=== PATIENT | female | born 1985 | race American Indian/Alaskan Native ===

== ENCOUNTER 2020-09-21 15:29 | Emergency (ER) | payer MEDICAID, OTHER ==
--- NOTE | 2020-09-21 18:00 | Emergency Department Report ---
ED General Adult HPI - General Chief complaint: Extremity Problem,Nontraumatic Stated complaint: CHEST/RT LEG/HEAD BURNING DISCHARGE Time Seen by Provider: 09/21/20 16:49 Source: patient Mode of arrival: Ambulatory Limitations: No Limitations - History of Present Illness Initial comments: Patient is a 35-year-old female presents emergency room complaints of right leg pain that began 2 to 3 days ago. She states that she has pain in her calf which radiates down to her heel. She states that she has some mild swelling to her calf. She denies any fall or injury. 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 She denies any numbness or weakness or tingling. She denies any chest pain or shortness of breath. She states that she is also had a headache around her right eye for 1 day. She has not taken any medications to help relieve any of her symptoms. She denies any fever, neck stiffness, vomiting, nausea, vision changes, numbness, weakness, speech disturbance, gait disturbance. No past medical history. No allergies to medications. Last menstrual cycle 3 weeks ago. Severity scale (0 -10): 5 - Related Data Previous Rx's Medication Instructions Recorded Last Taken Type Butalb/Acetaminophen/Caffeine 1 cap PO Q8HR PRN #12 cap 09/21/20 Unknown Rx [Fioricet 50-300-40 mg CAP] methOCARBAMOL [Robaxin TAB] 500 mg PO BID PRN #14 tab 09/21/20 Unknown Rx Allergies Allergy/AdvReac Type Severity Reaction Status Date / Time No Known Allergies Allergy Unverified 09/21/20 16:30 ED Review of Systems ROS: Stated complaint: CHEST/RT LEG/HEAD BURNING DISCHARGE Other details as noted in HPI Comment: All other systems reviewed and negative ED Past Medical Hx - Past Medical History Previous Medical History?: No - Surgical History Additional Surgical History: hernia repair - Medications Home Medications: Home Medications Medication Instructions Recorded Confirmed Last Taken Type Butalb/Acetaminophen/Caffeine 1 cap PO Q8HR PRN #12 cap 09/21/20 Unknown Rx [Fioricet 50-300-40 mg CAP] methOCARBAMOL [Robaxin TAB] 500 mg PO BID PRN #14 tab 09/21/20 Unknown Rx ED Physical Exam - General Limitations: No Limitations General appearance: alert, in no apparent distress - Head Head exam: Present: atraumatic, normocephalic - Eye Eye exam: Present: normal appearance, PERRL, EOMI. Absent: periorbital swelling, periorbital tenderness - ENT ENT exam: Present: mucous membranes moist - Neck Neck exam: Present: full ROM. Absent: meningismus - Respiratory Respiratory exam: Present: normal lung sounds bilaterally. Absent: respiratory distress, wheezes, rales, rhonchi, stridor, chest wall tenderness, accessory muscle use, decreased breath sounds, prolonged expiratory - Cardiovascular Cardiovascular Exam: Present: regular rate, normal rhythm, normal heart sounds. Absent: systolic murmur, diastolic murmur, rubs, gallop - Extremities Exam Extremities exam: Present: other (mild calf ttp, trace edema, no skin changes, no increased warmth, FROM of the RLE, no bony ttp, neurovascularly intact) - Neurological Exam Neurological exam: Present: alert, oriented X3, CN II-XII intact, normal gait. Absent: motor sensory deficit - Psychiatric Psychiatric exam: Present: normal affect, normal mood - Skin Skin exam: Present: warm, dry, intact ED Course Vital Signs 09/21/20 09/21/20 16:28 20:10 Temperature 98.5 F 98 F Pulse Rate 65 78 Respiratory 18 18 Rate Blood Pressure 116/85 Blood Pressure 102/49 [Right] O2 Sat by Pulse 100 100 Oximetry ED Medical Decision Making - Radiology Data Radiology results: report reviewed Ordering Physician: BAKARI LERMA Date of Service: 09/21/20 Procedure(s): VL venous duplex LE RT Accession Number(s): [id number] cc: BAKARI LERMA Right lower extremity Doppler venous ultrasound INDICATION: Edema FINDINGS: The right common femoral vein, superficial femoral vein and popliteal vein is normal compressibility and phasic flow. IMPRESSION: No evidence for DVT in the right lower extremity. Signer Name: Otis Gamez MD Signed: 09/21/2020 6:51 PM Workstation Name: [id number] Transcribed By: VOLODYMYR Dictated By: MARIBEL GAMEZ MD Electronically Authenticated By: MARIBEL GAMEZ MD Signed Date/Time: 09/21/201850 DD/ 49 TD/TT: Print - Medical Decision Making Patient is a 35-year-old female presents emergency room complaints of right leg pain that began 2 to 3 days ago. She states that she has pain in her calf which radiates down to her heel. She states that she has some mild swelling to her calf. She denies any fall or injury. 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 She denies any numbness or weakness or tingling. She denies any chest pain or shortness of breath. She states that she is also had a headache around her right eye for 1 day. She has not taken any medications to help relieve any of her symptoms. She denies any fever, neck stiffness, vomiting, nausea, vision changes, numbness, weakness, speech disturbance, gait disturbance. No past medical history. No allergies to medications. Last menstrual cycle 3 weeks ago. Vitals are normal. On exam:mild calf ttp, trace edema, no skin changes, no increased warmth, FROM of the RLE, no bony ttp, neurovascularly intact, patient has no focal neuro deficits or meningeal signs on exam. Doppler ultrasound right lower extremity: No evidence for DVT in the right lower extremity. Patient has had no acute trauma. She has no clinical signs of fracture or dislocation. She has no clinical signs of septic joint or gout. Patient also presenting with mild headache. She has not tried any treatment to alleviate her symptoms. Given prescription for Robaxin and Fioricet. Advised patient please take medication as prescribed. do not drive or operate heavy machinery while taking muscle relaxer robaxin. may use ice pack, heating pad, rest, epsom salt bath. follow up with primary care doctor. return to the emergency room for any new or worsening symptoms. Critical care attestation.: If time is entered above; I have spent that time in minutes in the direct care of this critically ill patient, excluding procedure time. ED Disposition Clinical Impression: Right calf pain Headache Qualifiers: Headache type: unspecified Headache chronicity pattern: acute headache Intractability: not intractable Qualified Code(s): R51.9 - Headache, unspecified Disposition: - TO HOME OR SELFCARE Is pt being admited?: No Does the pt Need Aspirin: No Condition: Stable Instructions: Migraine Headache, Focu-li-Lluo, Leg Cramps Additional Instructions: please take medication as prescribed. do not drive or operate heavy machinery while taking muscle relaxer robaxin. may use ice pack, heating pad, rest, epsom salt bath. follow up with primary care doctor. return to the emergency room for any new or worsening symptoms. Prescriptions: Butalb/Acetaminophen/Caffeine [Fioricet 50-300-40 mg CAP] 1 cap PO Q8HR PRN #12 cap PRN Reason: headache methOCARBAMOL [Robaxin TAB] 500 mg PO BID PRN #14 tab PRN Reason: leg cramping/pain Referrals: PRIMARY CARE, [Primary Care Provider] - 2-3 Days Forms: Work/School Release Form(ED) Time of Disposition: 19:26 Print Language: CHINESE
--- NOTE | 2020-09-21 18:55 | Vascular Lab Report ---
Right lower extremity Doppler venous ultrasound INDICATION: Edema FINDINGS: The right common femoral vein, superficial femoral vein and popliteal vein is normal compre ssibility and phasic flow. IMPRESSION: No evidence for DVT in the right lower extremity. Signer Name: Otis Crystal MD Signed: 09/21/2020 6:51 PM Workstation Name: [id number]
[2020-09-21 20:17] VITALS: BP 116/85
== END 2020-09-21 20:17 | disposition home or self-care (01) ==
LOC: ED 15:29
DX: M79.604 Pain in right leg (principal); R51.9 Headache, unspecified; Z98.890 Other specified postprocedural states; Z79.899 Other long term (current) drug therapy